=== PATIENT | female | born 2000 | race Caucasian/White ===

== ENCOUNTER → 2020-09-29 16:27 | Outpatient (CLI) | payer BC, OTHER, MEDICAID, SELFPAY ==
[2020-09-29 17:26] LABS: Add Manual Diff / Slide Review NO; Basophils Absolute Auto 0 /uL (0-100); Basophils Percent Auto 0.6 % (0-2); Eosinophils Absolute Auto 100 /uL (0-450); Eosinophils Percent Auto 2.1 % (2-4); Hematocrit 41.6 % (36-46); Hemoglobin 14.1 g/dL (12.0-16.0); Lymphocytes Absolute Auto 1500 /uL (1100-4500); Lymphocytes Percent Auto 28.4 % (25-40); Mean Corpuscular Hemoglobin 29.7 PG (26-34); Mean Corpuscular Volume 87.4 fL (80-100); Monocytes Absolute Auto 200 /uL (0-900); Monocytes Percent Auto 3.9 % (3-14); Neutrophils Absolute Auto 3500 /uL (1500-7000); Platelet Count 261 X10^3/uL (150-400); Red Blood Cell Count 4.76 X10^6/uL (4.0-5.2); Red Cell Distribution Width 13.1 % (11.6-14.8); White Blood Cell Count 5.3 X10^3/uL (4.5-11.0)
[2020-09-29 17:47] LABS: Alanine Aminotransferase 19 IU/L (<35); Albumin 4.8 g/dL (3.5-5.0); Albumin Globulin Ratio 1.7 (1.0-2.8); Alkaline Phosphatase 60 U/L (38-126); Aspartate Aminotransferase 27 IU/L (14-36); BUN Creatinine Ratio 16.1 (6-22); Bilirubin Total 0.4 mg/dL (0.2-1.3); Blood Urea Nitrogen 9 mg/dL (7-17); Calcium 9.7 mg/dL (8.4-10.2); Carbon Dioxide 26 mmol/L (22-32); Chloride 103 mmol/L (98-107); Estimated Glomerular Filt Rate > 60.0 mL/min (>60); Globulin 2.8 g/dL (1.7-4.1); Glucose 104 mg/dL (70-100); HEMOLYSIS < 15 (0-50); Potassium 3.9 mmol/L (3.4-5.1); Sodium 139 mmol/L (137-145); Total Protein 7.6 g/dL (6.3-8.2)
[2020-09-29 18:32] LABS: Pregnancy Test Urine Negative (Negative)
== END ==
PROVIDERS: PCP Registered Nurse; Referring Provider Registered Nurse; Visit Provider Registered Nurse
DX: Z30.40 Encounter for surveillance of contraceptives, unspecified (principal)
CPT/HCPCS: 36415; 80053; 81025; 85025

== ENCOUNTER 2024-11-30 05:03 | Emergency (ER) | payer BC, SELFPAY ==
[2024-11-30] VITALS (16 sets, daily range): BP systolic 109–143; BP diastolic 57–82; PULSE 70–106; RESP 15–26; TEMP 36.5; O2SAT 94–100; BMI 24.1
--- NOTE | 2024-11-30 05:50 | ED_ITS ---
HPI - Syncope <Chivo Gomez, DO - Last Filed: 11/30/24 06:06> General Chief Complaint: Syncope Stated Complaint: Syncope, head trauma, 13 wks grestation Time Seen by Provider: 11/30/24 05:25 Source: patient and family Mode of arrival: Ambulatory Limitations: no limitations History of Present Illness HPI narrative: 24-year-old 13wks CLINT June 03 got up at 4:00 a.m. this morning to get ready for work had a unwitnessed syncopal episode and notified her brought her in with concerns that she may have an acute emergency given that she is unable to recall any events leading up to her syncopal episode. He did recall saying she has had multiple multiple episodes of nausea vomiting yesterday and she did not have dinner last evening. She is on a vitamin B6 combination pill for nausea but she did not take any yesterday. No complications with the thus far and she denies any vaginal bleeding passing clots abdominal pain or back pain or urinary complaints. Patient denies chest pain, shortness of breath, leg pain or leg swelling. Other than what is stated 14 point review of system is negative. Related Data Home Medications ?Medication ?Instructions ?Recorded ?Confirmed levonorgestrel vaginal 09/23/20 Previous Rx's ?Medication ?Instructions ?Recorded norethindrone acetate 1.5 See Rx Instructions .Route 0 07/16/21 mg-ethinyl estradiol 30 mcg tablet .COMPLEX #63 tabs (Daniel) cefdinir 300 mg capsule 300 mg PO BID #10 caps 11/30 Allergies Allergy/AdvReac Type Severity Reaction Status Date / Time No Known Drug Allergies Allergy Unverified 11/30/24 05:18 Review of Systems <Chivo Gomez, DO - Last Filed: 11/30/24 06:06> Review of Systems ROS Unobtainable: All systems reviewed & are unremarkable except as noted in HPI and below Patient History <Chivo Gomez DO - Last Filed: 11/30/24 06:06> Medical History (Updated 11/30/24 @ 09:06 by Leonidas Tripathi MD) Encounter for IUD removal Contraceptive use IUD (intrauterine device) in place Anxiety Social History Smoking Status: Never smoker Smoking Status: Never smoker Exam <Chivo Gomez DO - Last Filed: 11/30/24 06:06> Narrative Exam Narrative: GENERAL: [24] year old patient appears stated age. Well-developed patient, in mild distress. HEAD: Atraumatic. Normocephalic. L facial contusion and L lip mild superficial laceration EYES: Pupils equal round and reactive. Extraocular motions intact. No scleral icterus. No injection or drainage. ENT: Nose without bleeding, purulent drainage. Throat without erythema, tonsillar hypertrophy or exudate. Airway patent. NECK: Trachea midline. Non tender CARDIOVASCULAR: Regular rate and rhythm without murmurs, gallops, or rubs. RESPIRATORY: Clear to auscultation. Breath sounds equal bilaterally. No wheezes, rales, or rhonchi. GASTROINTESTINAL: Abdomen soft, non-tender, nondistended. EXTREMITIES: No edema or joint tenderness. BACK: Nontender without deformity or crepitance. No flank tenderness. NEURO: AOx3. GCS 15 nonfocal neuro exam. Spontaneously moving all extremities with no difficulty. SKIN: No rash or erythema of visible areas Initial Vital Signs Initial Vital Signs: Vital Signs Temperature 97.7 F 11/30/24 05:18 Pulse Rate 96 H 11/30/24 05:18 Respiratory Rate 16 11/30/24 05:18 Blood Pressure 143/82 H 11/30/24 05:18 Pulse Oximetry 100 11/30/24 05:18 Oxygen Delivery Method Room Air 11/30/24 05:18 <Leonidas Tripathi MD - Last Filed: 11/30/24 12:06> Narrative Exam Narrative: GENERAL: [24] year old patient appears stated age. Well-developed patient, in mild distress. HEAD: Atraumatic. Normocephalic. L facial contusion and L lip mild superficial laceration, upper lateral lip 4 mm crossing the solomon border EYES: Pupils equal round and reactive. Extraocular motions intact. No scleral icterus. No injection or drainage. ENT: Nose without bleeding, purulent drainage. Throat without erythema, tonsillar hypertrophy or exudate. Airway patent. NECK: Trachea midline. Non tender CARDIOVASCULAR: Regular rate and rhythm without murmurs, gallops, or rubs. RESPIRATORY: Clear to auscultation. Breath sounds equal bilaterally. No wheezes, rales, or rhonchi. GASTROINTESTINAL: Abdomen soft, non-tender, nondistended. EXTREMITIES: No edema or joint tenderness. BACK: Nontender without deformity or crepitance. No flank tenderness. NEURO: AOx3. GCS 15 nonfocal neuro exam. Spontaneously moving all extremities with no difficulty. SKIN: No rash or erythema of visible areas Initial Vital Signs Initial Vital Signs: Vital Signs Temperature 97.7 F 11/30/24 05:18 Pulse Rate 96 H 11/30/24 05:18 Respiratory Rate 16 11/30/24 05:18 Blood Pressure 143/82 H 11/30/24 05:18 Pulse Oximetry 100 11/30/24 05:18 Oxygen Delivery Method Room Air 11/30/24 05:18 Procedures <Leonidas Tripathi MD - Last Filed: 11/30/24 12:06> Laceration Repair Laceration 1: Time of procedure: 09:05 Site: lip Side (If applicable): right Size (cm): 0.4 Description: linear Depth: simple, single layer Local Anesthetic: lidocaine 2% Amount of anesthesia used (mL): 1 Pre-repair: wound explored, irrigated extensively and deep structures intact Skin layer closed with: nylon Skin layer suture size: 6-0 Number of sutures: 1 Technique: simple, interrupted Course <Chivo Gomez DO - Last Filed: 11/30/24 06:06> Orders Ordered: ED Orders 11/30/24 05:55 Complete Blood Count AUTO DIFF Stat Comprehensive Metabolic Panel Stat 11/30/24 06:00 CT cervical spine wo con Stat CT facial bones wo con Stat CT head/brain wo con Stat US OB >= 14 weeks Fetus Stat 11/30/24 06:54 Urine Culture Stat Urine Microscopic Stat 11/30/24 08:05 EKG-12 Lead Stat Discontinued Medications Cefdinir (Cefdinir 300 Mg Capsule) 300 mg PO NOW ONE Stop: 11/30/24 08:07 Last Admin: 11/30/24 08:19 Dose: 300 mg Documented By: EB Sodium Chloride (Normal Saline 0.9%) 1,000 mls @ 1,000 mls/hr IV BOLUS ONE Stop: 11/30/24 09:05 Last Infusion: 11/30/24 09:27 Dose: Infused Documented By: Admin: 11/30/24 08:20 Dose: 1,000 mls/hr Documented By: EB Sodium Chloride (Normal Saline 0.9%) 1,000 mls @ 1,000 mls/hr IV BOLUS ONE Stop: 11/30/24 10:25 Last Infusion: 11/30/24 10:24 Dose: Infused Documented By: Admin: 11/30/24 09:31 Dose: 1,000 mls/hr Documented By: PHYLLIS Lidocaine HCl (Lidocaine 1% 20 Ml) 20 ml INJ INTRA-OP ONE Stop: 11/30/24 08:11 Last Admin: 11/30/24 08:21 Dose: 20 ml Documented By: PHYLLIS Vital Signs Vital signs: Vital Signs - 8 hr 11/30/24 05:18 11/30/24 07:00 11/30/24 07:01 Temperature 97.7 F Pulse Rate 96 H 72 Pulse Rate [Orthostatic Lying] Pulse Rate [Orthostatic Sitting] Pulse Rate [Orthostatic Standing] Respiratory Rate 16 Blood Pressure 143/82 H 118/71 Blood Pressure [Orthostatic Lying] Blood Pressure [Orthostatic Sitting] Blood Pressure [Orthostatic Standing] Pulse Oximetry 100 98 Oxygen Delivery Method Room Air 11/30/24 07:30 11/30/24 07:30 11/30/24 08:00 Temperature Pulse Rate 71 78 Pulse Rate [Orthostatic Lying] Pulse Rate [Orthostatic Sitting] Pulse Rate [Orthostatic Standing] Respiratory Rate 16 Blood Pressure 115/68 Blood Pressure [Orthostatic Lying] Blood Pressure [Orthostatic Sitting] Blood Pressure [Orthostatic Standing] Pulse Oximetry 99 100 Oxygen Delivery Method 11/30/24 08:00 11/30/24 08:11 11/30/24 08:11 Temperature Pulse Rate 75 Pulse Rate [Orthostatic Lying] Pulse Rate [Orthostatic Sitting] Pulse Rate [Orthostatic Standing] Respiratory Rate 22 Blood Pressure 119/73 113/60 Blood Pressure [Orthostatic Lying] Blood Pressure [Orthostatic Sitting] Blood Pressure [Orthostatic Standing] Pulse Oximetry 100 Oxygen Delivery Method Room Air 11/30/24 08:13 11/30/24 08:13 11/30/24 08:17 Temperature Pulse Rate 76 97 H Pulse Rate [Orthostatic Lying] Pulse Rate [Orthostatic Sitting] Pulse Rate [Orthostatic Standing] Respiratory Rate 26 H 21 Blood Pressure 125/70 Blood Pressure [Orthostatic Lying] Blood Pressure [Orthostatic Sitting] Blood Pressure [Orthostatic Standing] Pulse Oximetry 98 94 Oxygen Delivery Method 11/30/24 08:17 11/30/24 08:19 11/30/24 08:28 Temperature Pulse Rate 81 Pulse Rate [Orthostatic Lying] 74 Pulse Rate [Orthostatic Sitting] 73 Pulse Rate [Orthostatic Standing] 106 H Respiratory Rate Blood Pressure 118/62 Blood Pressure [Orthostatic Lying] 113/60 Blood Pressure [Orthostatic Sitting] 125/70 Blood Pressure [Orthostatic Standing] 118/62 Pulse Oximetry 98 Oxygen Delivery Method 11/30/24 08:28 11/30/24 08:30 11/30/24 08:30 Temperature Pulse Rate 80 Pulse Rate [Orthostatic Lying] Pulse Rate [Orthostatic Sitting] Pulse Rate [Orthostatic Standing] Respiratory Rate 18 Blood Pressure 113/65 119/57 L Blood Pressure [Orthostatic Lying] Blood Pressure [Orthostatic Sitting] Blood Pressure [Orthostatic Standing] Pulse Oximetry 99 Oxygen Delivery Method 11/30/24 09:00 11/30/24 09:01 11/30/24 09:01 Temperature Pulse Rate 77 70 Pulse Rate [Orthostatic Lying] Pulse Rate [Orthostatic Sitting] Pulse Rate [Orthostatic Standing] Respiratory Rate Blood Pressure 121/65 Blood Pressure [Orthostatic Lying] Blood Pressure [Orthostatic Sitting] Blood Pressure [Orthostatic Standing] Pulse Oximetry 100 100 Oxygen Delivery Method 11/30/24 09:30 11/30/24 09:30 11/30/24 10:00 Temperature Pulse Rate 73 83 Pulse Rate [Orthostatic Lying] Pulse Rate [Orthostatic Sitting] Pulse Rate [Orthostatic Standing] Respiratory Rate 17 15 Blood Pressure 123/59 L Blood Pressure [Orthostatic Lying] Blood Pressure [Orthostatic Sitting] Blood Pressure [Orthostatic Standing] Pulse Oximetry 100 99 Oxygen Delivery Method 11/30/24 10:13 11/30/24 10:13 Temperature Pulse Rate 93 H Pulse Rate [Orthostatic Lying] Pulse Rate [Orthostatic Sitting] Pulse Rate [Orthostatic Standing] Respiratory Rate Blood Pressure 109/60 Blood Pressure [Orthostatic Lying] Blood Pressure [Orthostatic Sitting] Blood Pressure [Orthostatic Standing] Pulse Oximetry Oxygen Delivery Method <Leonidas Tripathi MD - Last Filed: 11/30/24 12:06> Orders Ordered: ED Orders 11/30/24 05:55 Complete Blood Count AUTO DIFF Stat Comprehensive Metabolic Panel Stat 11/30/24 06:00 CT cervical spine wo con Stat CT facial bones wo con Stat CT head/brain wo con Stat US OB >= 14 weeks Fetus Stat 11/30/24 06:54 Urine Culture Stat Urine Microscopic Stat 11/30/24 08:05 EKG-12 Lead Stat Discontinued Medications Cefdinir (Cefdinir 300 Mg Capsule) 300 mg PO NOW ONE Stop: 11/30/24 08:07 Last Admin: 11/30/24 08:19 Dose: 300 mg Documented By: EB Sodium Chloride (Normal Saline 0.9%) 1,000 mls @ 1,000 mls/hr IV BOLUS ONE Stop: 11/30/24 09:05 Last Infusion: 11/30/24 09:27 Dose: Infused Documented By: Admin: 11/30/24 08:20 Dose: 1,000 mls/hr Documented By: EB Sodium Chloride (Normal Saline 0.9%) 1,000 mls @ 1,000 mls/hr IV BOLUS ONE Stop: 11/30/24 10:25 Last Infusion: 11/30/24 10:24 Dose: Infused Documented By: Admin: 11/30/24 09:31 Dose: 1,000 mls/hr Documented By: EB Lidocaine HCl (Lidocaine 1% 20 Ml) 20 ml INJ INTRA-OP ONE Stop: 11/30/24 08:11 Last Admin: 11/30/24 08:21 Dose: 20 ml Documented By: PHYLLIS Vital Signs Vital signs: Vital Signs - 8 hr 11/30/24 05:18 11/30/24 07:00 11/30/24 07:01 Temperature 97.7 F Pulse Rate 96 H 72 Pulse Rate [Orthostatic Lying] Pulse Rate [Orthostatic Sitting] Pulse Rate [Orthostatic Standing] Respiratory Rate 16 Blood Pressure 143/82 H 118/71 Blood Pressure [Orthostatic Lying] Blood Pressure [Orthostatic Sitting] Blood Pressure [Orthostatic Standing] Pulse Oximetry 100 98 Oxygen Delivery Method Room Air 11/30/24 07:30 11/30/24 07:30 11/30/24 08:00 Temperature Pulse Rate 71 78 Pulse Rate [Orthostatic Lying] Pulse Rate [Orthostatic Sitting] Pulse Rate [Orthostatic Standing] Respiratory Rate 16 Blood Pressure 115/68 Blood Pressure [Orthostatic Lying] Blood Pressure [Orthostatic Sitting] Blood Pressure [Orthostatic Standing] Pulse Oximetry 99 100 Oxygen Delivery Method 11/30/24 08:00 11/30/24 08:11 11/30/24 08:11 Temperature Pulse Rate 75 Pulse Rate [Orthostatic Lying] Pulse Rate [Orthostatic Sitting] Pulse Rate [Orthostatic Standing] Respiratory Rate 22 Blood Pressure 119/73 113/60 Blood Pressure [Orthostatic Lying] Blood Pressure [Orthostatic Sitting] Blood Pressure [Orthostatic Standing] Pulse Oximetry 100 Oxygen Delivery Method Room Air 11/30/24 08:13 11/30/24 08:13 11/30/24 08:17 Temperature Pulse Rate 76 97 H Pulse Rate [Orthostatic Lying] Pulse Rate [Orthostatic Sitting] Pulse Rate [Orthostatic Standing] Respiratory Rate 26 H 21 Blood Pressure 125/70 Blood Pressure [Orthostatic Lying] Blood Pressure [Orthostatic Sitting] Blood Pressure [Orthostatic Standing] Pulse Oximetry 98 94 Oxygen Delivery Method 11/30/24 08:17 11/30/24 08:19 11/30/24 08:28 Temperature Pulse Rate 81 Pulse Rate [Orthostatic Lying] 74 Pulse Rate [Orthostatic Sitting] 73 Pulse Rate [Orthostatic Standing] 106 H Respiratory Rate Blood Pressure 118/62 Blood Pressure [Orthostatic Lying] 113/60 Blood Pressure [Orthostatic Sitting] 125/70 Blood Pressure [Orthostatic Standing] 118/62 Pulse Oximetry 98 Oxygen Delivery Method 11/30/24 08:28 11/30/24 08:30 11/30/24 08:30 Temperature Pulse Rate 80 Pulse Rate [Orthostatic Lying] Pulse Rate [Orthostatic Sitting] Pulse Rate [Orthostatic Standing] Respiratory Rate 18 Blood Pressure 113/65 119/57 L Blood Pressure [Orthostatic Lying] Blood Pressure [Orthostatic Sitting] Blood Pressure [Orthostatic Standing] Pulse Oximetry 99 Oxygen Delivery Method 11/30/24 09:00 11/30/24 09:01 11/30/24 09:01 Temperature Pulse Rate 77 70 Pulse Rate [Orthostatic Lying] Pulse Rate [Orthostatic Sitting] Pulse Rate [Orthostatic Standing] Respiratory Rate Blood Pressure 121/65 Blood Pressure [Orthostatic Lying] Blood Pressure [Orthostatic Sitting] Blood Pressure [Orthostatic Standing] Pulse Oximetry 100 100 Oxygen Delivery Method 11/30/24 09:30 11/30/24 09:30 11/30/24 10:00 Temperature Pulse Rate 73 83 Pulse Rate [Orthostatic Lying] Pulse Rate [Orthostatic Sitting] Pulse Rate [Orthostatic Standing] Respiratory Rate 17 15 Blood Pressure 123/59 L Blood Pressure [Orthostatic Lying] Blood Pressure [Orthostatic Sitting] Blood Pressure [Orthostatic Standing] Pulse Oximetry 100 99 Oxygen Delivery Method 11/30/24 10:13 11/30/24 10:13 Temperature Pulse Rate 93 H Pulse Rate [Orthostatic Lying] Pulse Rate [Orthostatic Sitting] Pulse Rate [Orthostatic Standing] Respiratory Rate Blood Pressure 109/60 Blood Pressure [Orthostatic Lying] Blood Pressure [Orthostatic Sitting] Blood Pressure [Orthostatic Standing] Pulse Oximetry Oxygen Delivery Method MDM - Syncope <Chivo Gomez, DO - Last Filed: 11/30/24 06:06> Lab Data 11/30/24 05:55 11/30/24 05:55 Labs: Lab Results 11/30/24 11/30/24 11/30/24 Range/Units 05:53 05:55 06:54 WBC 7.9 (4.5-11.0) X10^3/uL RBC 4.53 (4.0-5.2) X10^6/uL Hgb 13.7 (12.0-16.0) g/dL Hct 38.8 (36-46) % MCV 85.7 (80-100) fL MCH 30.3 (26-34) PG MCHC 35.3 (30-36) % RDW 13.3 (11.6-14.8) % Plt Count 225 (150-400) X10^3/uL Neut % (Auto) 71.1 (50-75) % Lymph % (Auto) 21.3 L (25-40) % Nobles % (Auto) 5.8 (3-14) % Eos % (Auto) 1.4 L (2-4) % Baso % (Auto) 0.4 (0-2) % Neut # (Auto) 5600 (6097-5385) /uL Lymph # (Auto) 1700 (5219-4127) /uL Nobles # (Auto) 500 (0-900) /uL Eos # (Auto) 100 (0-450) /uL Baso # (Auto) 0 (0-100) /uL Sodium 134 L (137-145) mmol/L Potassium 3.5 (3.4-5.1) mmol/L Chloride 104 (98-107) mmol/L Carbon Dioxide 20 L (22-32) mmol/L BUN 7 (7-17) mg/dL Creatinine 0.48 L (0.52-1.04) mg/dL Estimated GFR > 60 (>60) mL/min BUN/Creatinine Ratio 14.6 (6-22) Glucose 90 (70-99) mg/dL POC Whole Bld Glucose 89 (70-99) mg/dL Calcium 9.2 (8.4-10.2) mg/dL Total Bilirubin 0.5 (0.2-1.3) mg/dL AST 24 (14-36) IU/L ALT 19 (<35) IU/L Alkaline Phosphatase 56 (38-126) U/L Total Protein 7.6 (6.3-8.2) g/dL Albumin 4.6 (3.5-5.0) g/dL Globulin 3.0 (1.7-4.1) g/dL Albumin/Globulin Ratio 1.5 (1.0-2.8) Urine RBC 0-1/hpf (0-5/HPF) Urine WBC 10-30/hpf H (0-5/HPF) Ur Squamous Epith Cells 10-30 /hpf H (0-5/HPF) Urine Bacteria Moderate (10-30) H (None) Ur Culture Indicated? Specimen cultured Vol Urine Centrifuged 10ml (spun) Urine Dip Bedside Urine Glucose Negative Bedside Urine Bilirubin - Negative Bedside Urine Ketone +++ 80 Urine Specific Michael 1.020 Bedside Urine Occult Blood - Negative Bedside Urine pH 6.0 Bedside Urine Protein +/- 15 Bedside Urine Urobilinogen 1+ 2mg Bedside Urine Nitrite - Negative Bedside Urine Leukocytes + 70 Esterase <Leonidas Tripathi MD - Last Filed: 11/30/24 12:06> Lab Data Labs: Lab Results 11/30/24 11/30/24 11/30/24 Range/Units 05:53 05:55 06:54 WBC 7.9 (4.5-11.0) X10^3/uL RBC 4.53 (4.0-5.2) X10^6/uL Hgb 13.7 (12.0-16.0) g/dL Hct 38.8 (36-46) % MCV 85.7 (80-100) fL MCH 30.3 (26-34) PG MCHC 35.3 (30-36) % RDW 13.3 (11.6-14.8) % Plt Count 225 (150-400) X10^3/uL Neut % (Auto) 71.1 (50-75) % Lymph % (Auto) 21.3 L (25-40) % Nobles % (Auto) 5.8 (3-14) % Eos % (Auto) 1.4 L (2-4) % Baso % (Auto) 0.4 (0-2) % Neut # (Auto) 5600 (2788-6550) /uL Lymph # (Auto) 1700 (7252-7087) /uL Nobles # (Auto) 500 (0-900) /uL Eos # (Auto) 100 (0-450) /uL Baso # (Auto) 0 (0-100) /uL Sodium 134 L (137-145) mmol/L Potassium 3.5 (3.4-5.1) mmol/L Chloride 104 (98-107) mmol/L Carbon Dioxide 20 L (22-32) mmol/L BUN 7 (7-17) mg/dL Creatinine 0.48 L (0.52-1.04) mg/dL Estimated GFR > 60 (>60) mL/min BUN/Creatinine Ratio 14.6 (6-22) Glucose 90 (70-99) mg/dL POC Whole Bld Glucose 89 (70-99) mg/dL Calcium 9.2 (8.4-10.2) mg/dL Total Bilirubin 0.5 (0.2-1.3) mg/dL AST 24 (14-36) IU/L ALT 19 (<35) IU/L Alkaline Phosphatase 56 (38-126) U/L Total Protein 7.6 (6.3-8.2) g/dL Albumin 4.6 (3.5-5.0) g/dL Globulin 3.0 (1.7-4.1) g/dL Albumin/Globulin Ratio 1.5 (1.0-2.8) Urine RBC 0-1/hpf (0-5/HPF) Urine WBC 10-30/hpf H (0-5/HPF) Ur Squamous Epith Cells 10-30 /hpf H (0-5/HPF) Urine Bacteria Moderate (10-30) H (None) Ur Culture Indicated? Specimen cultured Vol Urine Centrifuged 10ml (spun) Urine Dip Bedside Urine Glucose Negative Bedside Urine Bilirubin - Negative Bedside Urine Ketone +++ 80 Urine Specific Michael 1.020 Bedside Urine Occult Blood - Negative Bedside Urine pH 6.0 Bedside Urine Protein +/- 15 Bedside Urine Urobilinogen 1+ 2mg Bedside Urine Nitrite - Negative Bedside Urine Leukocytes + [address] scan - head: Radiologist's Impression: [address] [address] [address] Scan Report Signed Patient: Amrita Smith MR#: [id number] : 2000 Acct:[id number] Age/Sex: 24 / F Date of Service: 11/30/24 Loc: ED Accession Number: [id number] Procedure: CT head/brain wo con Ordering Provider: Chivo Gomez D.O. PROCEDURE: CT HEAD/BRAIN WO CON INDICATIONS: syncope TECHNIQUE: Noncontrast 4.5 mm thick angled axial sections acquired from the foramen magnum to the vertex, with coronal and sagittal reformats. For radiation dose reduction, the following was used: automated exposure control, adjustment of mA and/or kV according to patient size. COMPARISON: None. FINDINGS: Image quality: Diagnostic. CSF spaces: Basal cisterns are patent. No extra-axial fluid collections. Ventricles are normal in size and shape. Brain: No midline shift. No intracranial mass effect or hemorrhage. Matthews- white matter interface is normal. Skull and face: Calvarium and visualized facial bones are intact, without suspicious lesions. Sinuses: Visualized sinuses and mastoids are clear. IMPRESSION: No acute intracranial pathology. Approved by: Jean Paul Gray M.D. on 11/30/2024 at 8:10 CT - cervical spine: Radiologist's Impression: [address] [address] [address] Scan Report Signed Patient: Amrita Smith MR#: [id number] : 2000 Acct:[id number] Age/Sex: 24 / F Date of Service: 11/30/24 Loc: ED Accession Number: [id number] Procedure: CT cervical spine wo con Ordering Provider: Chivo Gomez D.O. PROCEDURE: CT CERVICAL SPINE WO CON INDICATIONS: syncope TECHNIQUE: Noncontrast 3 mm thick sections acquired from the skull base to the T4 level. Sagittal and coronal reformats were then constructed. For radiation dose reduction, the following was used: automated exposure control, adjustment of mA and/or kV according to patient size. COMPARISON: None. FINDINGS: Image quality: Excellent. Bones: No acute fractures or dislocations. Visualized superior ribs are intact. Soft tissues: Prevertebral soft tissues are normal in thickness. No paravertebral hematomas. No apical pneumothoraces. IMPRESSION: No acute displaced fracture or traumatic subluxation. There is no significant discrepancy when compared to the overnight preliminary report. Approved by: Jean Paul Gray M.D. on 11/30/2024 at 8:16 CT face: Radiologist's Impression: [address] [address] [address] Scan Report Signed Patient: Amrita Smith MR#: [id number] : 2000 Acct:[id number] Age/Sex: 24 / F Date of Service: 11/30/24 Loc: ED Accession Number: [id number] Procedure: CT facial bones wo con Ordering Provider: Chivo Gomez D.O. PROCEDURE: CT FACIAL BONES WO CON INDICATIONS: syncope TECHNIQUE: Noncontrast 2.5 mm thick axial images acquired from the mandible through the frontal sinuses, with coronal and sagittal reformatting. For radiation dose reduction, the following was used: automated exposure control, adjustment of mA and/or kV according to patient size. COMPARISON: None. FINDINGS: Image quality: Excellent. Bones and teeth: Orbital mccoy are intact. Sinus mccoy show no fracture or deformity. Nasal bones and septum are intact. Visualized portions of the mandible demonstrate no fractures or subluxation. Zygomatic arches are intact. Pterygoid plates are intact. Visualized portions of the skull base and auditory canals are intact. Sinuses: Paranasal sinuses are aerated, without fluid levels, mucosal thickening, or mucoceles. Mastoid air cells are aerated. Soft tissues: Focal subcutaneous edema is seen overlying the left zygoma. No enlarged lymph nodes. No soft tissue lacerations or debris. Vascular: Visualized vascular structures appear normal in the absence of contrast. Bony vascular foramina and canals are intact. IMPRESSION: No acute facial fracture. Mild left facial subcutaneous edema. There is no significant discrepancy when compared to the overnight preliminary report. Approved by: Jean Paul Gray M.D. on 11/30/2024 at 8:14 ultrasound: Radiologist's Impression: [address] [address] Ultrasound Report Signed Patient: Amrita Smith MR#: [id number] : 2000 Acct:[id number] Age/Sex: 24 / F Date of Service: 11/30/24 Loc: ED Accession Number: [id number] Procedure: US OB >= 14 weeks Fetus Ordering Provider: Chivo Gomez D.O. PROCEDURE: US OB >= 14 WEEKS FETUS INDICATIONS: syncope OUTSIDE/PRIOR DATING DATA: Last menstrual period (LMP): 08/27/2024. LMP-based estimated date of delivery (CLINT): 06/03/2025. TECHNIQUE: Real-time scanning was performed of the fetus, with image documentation and biometric measurements. Endovaginal scanning: Not performed COMPARISON: None. FINDINGS: General: A single living intrauterine gestation is present. Presentation: transverse, maternal right. Placenta: Placental position is anterior, without previa. Amniotic fluid index: Subjectively normal. heart rate: 147 beats per minute. Maternal cervical canal: 2.7 cm long. Normal lower limit is 2.5 cm. biometrics: Biparietal diameter: 2.5 cm, 14 weeks 2 days Head circumference: 9.8 cm, 14 weeks 4 days Abdominal circumference: 8.3 cm, 14 weeks 4 days Femur length: 1.2 cm, 13 weeks 3 days Clinically estimated gestational age: 13 weeks 4 days Composite gestational age from present scan: 14 weeks 2 days IMPRESSION: 1. [place] living intrauterine at 14 weeks 2 days based on today's ultrasound. 2. Subjectively normal amniotic fluid. Recommend anatomic survey at 20 weeks. We strive to produce accurate, complete, and clear reports of imaging services. To assist us in improving patient care, this report was composed using standard report templates and voice recognition software. Therefore, it may contain abnormal punctuation, insertions and/or omissions. Occasional wrong-word or sound-alike substitutions may occur. Though we review the report and make efforts to correct it, we do recommend that the report be read carefully in proper context to recognize any text inaccuracies. Dictated by: Alexi Purvis M.D. on 11/30/2024 at 8:09 Approved by: Alexi Purvis M.D. on 11/30/2024 at 8:17 [facility] Narrative Medical decision making narrative: 24-year-old 13wks CLINT June [birth year] got up at 4:00 a.m. this morning to get ready for work had a unwitnessed syncopal episode and notified her brought her in with concerns that she may have an acute emergency given that she is unable to recall any events leading up to her syncopal episode. He did recall saying she has had multiple multiple episodes of nausea vomiting yesterday and she did not have dinner last evening. She is on a vitamin B6 combination pill for nausea but she did not take any yesterday. No complications with the thus far and she denies any vaginal bleeding passing clots abdominal pain or back pain or urinary complaints. Patient denies chest pain, shortness of breath, leg pain or leg swelling. Other than what is stated 14 point review of system is negative. MDM After history and exam, CT head CT face CT cervical spine ultrasound CBC CMP urinalysis Differential considered: Includes but not limited to facial fracture vasovagal syncope seizure dehydration UTI Medical records reviewed: No recent visit for this complaint Lab Test results independently reviewed as above. Pertinent findings: WBC 7.9 hemoglobin 13.7 sodium 134 potassium 3.5 bicarb 20 BUN 7 creatinine 0.48 GFR greater than 60 glucose 90 urinalysis WBC 10 30 positive bacteria, positive leukocytes negative nitrite positive ketones Imaging studies independently reviewed: CT cervical spine no acute finding. CT face no fracture CT head no acute finding ultrasound no acute finding EKG normal sinus rhythm rate 86 Consultations: None indicated at this time Re-evaluations: 8:58 a.m.. Reviewed with patient and family likely vasovagal dehydration UTI causing her syncope. She has had vomiting recently. Urinalysis does show signs of dehydration. IV fluids have been started. Reviewed with patient and family results, imaging studies reassuring. Return precautions reviewed. Wound care instructions provided. Hydration instructions provided. They desire discharge home. Discussion: Appropriate for discharge home. Exam is reassuring. IV fluids have been provided. Patient tolerated wound repair very well. Return precautions reviewed. They desire discharge home. Lip repair was done using suture at the vermilion border. Diagnosis: Vasovagal syncope, lip laceration, dehydration, UTI 7:[address] Tripathi: Sign-out from Dr. Gomez, patient likely had vasovagal syncope. Has had nausea and vomiting. Laboratory studies are pending CT images and ultrasound pending. Will need suture repair of the lip. Risks and benefits were discussed with patient and family for CT imaging by Dr. Gomez Discharge Plan Departure Patient Disposition: Home Clinical Impression: Vasovagal syncope, Acute dehydration, Acute UTI Complicated laceration of lip Qualifiers: Encounter type: initial encounter Qualified Code(s): S01.511A - Laceration without foreign body of lip, initial encounter Instructions: DI for Syncope in Adults (Fainting), DI for Dehydration -- Adult, DI for Laceration Repair -- Simple, DI for Urinary Tract Infection (UTI) Activity Restrictions/Additional Instructions: You are being treated for dehydration, urinary tract infection. Antibiotics have been prescribed for you and started. Keep well hydrated. Return here or go to urgent care in 7 days to have stitches removed from your lip. Please continue soft foods until the stitch has been removed. See your OBGYN doctor in a week for re-evaluation. Your imaging studies have been reassuring. You were given IV fluids while you are here. Return if worse if any questions or concerns Prescriptions: New cefdinir 300 mg capsule 300 mg PO BID Qty: 10 0RF No Action norethindrone ac-eth estradiol [Daniel 1.5 (21)] 1.5-30 mg-mcg tablet See Rx Instructions .ROUTE .COMPLEX Qty: 63 0RF Dose Instruction: take 1 tablet by mouth once daily Rx Instructions: take 1 tablet by mouth once daily levonorgestrel vaginal Stand Alone Forms: Patient Portal/API, Work Release Note
[2024-11-30 05:59] LABS: Add Manual Diff / Slide Review NO; Hematocrit 38.8 % (36-46); Hemoglobin 13.7 g/dL (12.0-16.0); Lymphocytes Absolute Auto 1700 /uL (1100-4500); Mean Corpuscular HGB Conc 35.3 % (30-36); Mean Corpuscular Hemoglobin 30.3 PG (26-34); Mean Corpuscular Volume 85.7 fL (80-100); Platelet Count 225 X10^3/uL (150-400)
--- NOTE | 2024-11-30 06:00 | DI.CT.S_ITS ---
PROCEDURE: CT CERVICAL SPINE WO CON INDICATIONS: syncope TECHNIQUE: Noncontrast 3 mm thick sections acquired from the skull base to the T4 level. Sagittal and coronal reformats were then constructed. For radiation dose reduction, the following was used: automated exposure control, adjustment of mA and/or kV according to patient size. COMPARISON: None. FINDINGS: Image quality: Excellent. Bones: No acute fractures or dislocations. Visualized superior ribs are intact. Soft tissues: Prevertebral soft tissues are normal in thickness. No paravertebral hematomas. No apical pneumothoraces. IMPRESSION: No acute displaced fracture or traumatic subluxation. There is no significant discrepancy when compared to the overnight preliminary report. Approved by: Jean Paul Gray M.D. on 11/30/2024 at 8:16
--- NOTE | 2024-11-30 06:00 | DI.CT.S_ITS ---
PROCEDURE: CT HEAD/BRAIN WO CON INDICATIONS: syncope TECHNIQUE: Noncontrast 4.5 mm thick angled axial sections acquired from the foramen magnum to the vertex, with coronal and sagittal reformats. For radiation dose reduction, the following was used: automated exposure control, adjustment of mA and/or kV according to patient size. COMPARISON: None. FINDINGS: Image quality: Diagnostic. CSF spaces: Basal cisterns are patent. No extra-axial fluid collections. Ventricles are normal in size and shape. Brain: No midline shift. No intracranial mass effect or hemorrhage. Matthews- white matter interface is normal. Skull and face: Calvarium and visualized facial bones are intact, without suspicious lesions. Sinuses: Visualized sinuses and mastoids are clear. IMPRESSION: No acute intracranial pathology. Approved by: Jean Paul Gray M.D. on 11/30/2024 at 8:10
--- NOTE | 2024-11-30 06:00 | DI.US.S_ITS ---
PROCEDURE: US OB >= 14 WEEKS FETUS INDICATIONS: syncope OUTSIDE/PRIOR DATING DATA: Last menstrual period (LMP): 08/27/2024. LMP-based estimated date of delivery (CLINT): 06/03/2025. TECHNIQUE: Real-time scanning was performed of the fetus, with image documentation and biometric measurements. Endovaginal scanning: Not performed COMPARISON: None. FINDINGS: General: A single living intrauterine gestation is present. Presentation: transverse, maternal right. Placenta: Placental position is anterior, without previa. Amniotic fluid index: Subjectively normal. heart rate: 147 beats per minute. Maternal cervical canal: 2.7 cm long. Normal lower limit is 2.5 cm. biometrics: Biparietal diameter: 2.5 cm, 14 weeks 2 days Head circumference: 9.8 cm, 14 weeks 4 days Abdominal circumference: 8.3 cm, 14 weeks 4 days Femur length: 1.2 cm, 13 weeks 3 days Clinically estimated gestational age: 13 weeks 4 days Composite gestational age from present scan: 14 weeks 2 days IMPRESSION: 1. [place] living intrauterine at 14 weeks 2 days based on today's ultrasound. 2. Subjectively normal amniotic fluid. Recommend anatomic survey at 20 weeks. We strive to produce accurate, complete, and clear reports of imaging services. To assist us in improving patient care, this report was composed using standard report templates and voice recognition software. Therefore, it may contain abnormal punctuation, insertions and/or omissions. Occasional wrong-word or sound-alike substitutions may occur. Though we review the report and make efforts to correct it, we do recommend that the report be read carefully in proper context to recognize any text inaccuracies. Dictated by: Alexi Purvis M.D. on 11/30/2024 at 8:09 Approved by: Alexi Purvis M.D. on 11/30/2024 at 8:17
--- NOTE | 2024-11-30 06:00 | DI.CT.S_ITS ---
PROCEDURE: CT FACIAL BONES WO CON INDICATIONS: syncope TECHNIQUE: Noncontrast 2.5 mm thick axial images acquired from the mandible through the frontal sinuses, with coronal and sagittal reformatting. For radiation dose reduction, the following was used: automated exposure control, adjustment of mA and/or kV according to patient size. COMPARISON: None. FINDINGS: Image quality: Excellent. Bones and teeth: Orbital mccoy are intact. Sinus mccoy show no fracture or deformity. Nasal bones and septum are intact. Visualized portions of the mandible demonstrate no fractures or subluxation. Zygomatic arches are intact. Pterygoid plates are intact. Visualized portions of the skull base and auditory canals are intact. Sinuses: Paranasal sinuses are aerated, without fluid levels, mucosal thickening, or mucoceles. Mastoid air cells are aerated. Soft tissues: Focal subcutaneous edema is seen overlying the left zygoma. No enlarged lymph nodes. No soft tissue lacerations or debris. Vascular: Visualized vascular structures appear normal in the absence of contrast. Bony vascular foramina and canals are intact. IMPRESSION: No acute facial fracture. Mild left facial subcutaneous edema. There is no significant discrepancy when compared to the overnight preliminary report. Approved by: Jean Paul Gray M.D. on 11/30/2024 at 8:14
[2024-11-30 06:09] LABS: Alanine Aminotransferase 19 IU/L (<35); Albumin 4.6 g/dL (3.5-5.0); Albumin Globulin Ratio 1.5 (1.0-2.8); Alkaline Phosphatase 56 U/L (38-126); Blood Urea Nitrogen 7 mg/dL (7-17); Calcium 9.2 mg/dL (8.4-10.2); Carbon Dioxide 20 mmol/L (22-32); Chloride 104 mmol/L (98-107); Estimated Glomerular Filt Rate > 60 mL/min (>60); Globulin 3.0 g/dL (1.7-4.1); Glucose 90 mg/dL (70-99); HEMOLYSIS < 15 (0-50); Potassium 3.5 mmol/L (3.4-5.1); Sodium 134 mmol/L (137-145); Total Protein 7.6 g/dL (6.3-8.2)
[2024-11-30 07:55] LABS: Culture Indicated Urine Specimen Cultured
[2024-11-30] MEDS: CEFDINIR 300 MG CAPSULE PO (08:19)
[2024-11-30] MEDS: SODIUM CHLORIDE 0.9% 1,000 ML 1000 ML IV ×2 (08:20→09:31)
[2024-11-30] MEDS: LIDOCAINE 1% 20 ML INJ (08:21)
--- NOTE | 2024-11-30 08:26 | EKG_ITS ---
[place] [address] [place] [id number] Test Date: 2024-11-30 Pat Name: Amrita Smith Department: [facility] Room: Gender: Female Paper Sorter And Counter: NIKKI : 2000 Requested By: Order Number: [id number] Reading MD: Chivo Orta MD Measurements Intervals United Rate: 86 P: 30 NV: 120 QRS: 59 QRSD: 88 T: -13 QT: 374 QTc: 447 Interpretive Statements Normal sinus rhythm with sinus arrhythmia T wave abnormality, consider inferior ischemia T wave abnormality, consider anterior ischemia NO PRIOR TRACING Electronically Signed On 11-30-2024 10:06:11 PDT by Chivo Orta MD
--- NOTE | 2024-11-30 09:05 | PC.NURSE ---
Pt removed from IV fluids by provider and ambulated independently to restroom. Returned to room and fluids continued at 0900. Pt provided with a warm blanket and denied any further needs at this time.
--- NOTE | 2024-11-30 09:36 | PC.NURSE ---
This RN hung a second bag of NS per MD order at this time. Pt denied any pain or discomfort as infusion began and IV site observed to be intact and infusing appropriately. No redness or swelling observed. Pt denied any further needs at this time.
--- NOTE | 2024-11-30 09:50 | PC.NURSE ---
This RN answered patient call light. Patient requested to use restroom. Patient has been able to ambulate independently. Patient denies dizziness or lightheadedness. Patient has shoes on to ambulate. Patient significant other accompanies patient to restroom. Patient not requiring assistance to ambulate.
--- NOTE | 2024-11-30 10:04 | PC.NURSE ---
Pt fluids restarted by this RN after pt ambulated to restroom. Pt also replaced on VS monitor and threat monitoring analyst at this time. Pt denied any pain at IV site as infusion began. No redness or swelling observed. Pt denied any further needs at this time.
== END 2024-11-30 10:25 | disposition home or self-care (01) ==
PROVIDERS: Family Medicine; Emergency Provider Emergency Medicine
DX: O26.891 Other specified pregnancy related conditions, first trimester (principal); R55 Syncope and collapse; S09.90XA Unspecified injury of head, initial encounter; E86.0 Dehydration; N39.0 Urinary tract infection, site not specified; S01.511A Laceration without foreign body of lip, initial encounter; Z3A.13 13 weeks gestation of pregnancy
CPT/HCPCS: 12011; 36415; 70450; 70486; 72125; 76811; 80053; 81003; 81015; 82962; 85025; 87086; 93005; 93010; 96360; 96361; 99284

== ENCOUNTER → 2025-01-14 13:24 | Outpatient (CLI) | payer BC, SELFPAY ==
--- NOTE | 2025-01-14 13:25 | DI.US.S_ITS ---
PROCEDURE: US OB >= 14 WEEKS FETUS
== END ==
LOC: US 13:24
PROVIDERS: Referring Provider Advanced Practice Midwife; Visit Provider Advanced Practice Midwife
DX: Z34.92 Encounter for supervision of normal pregnancy, unspecified, second trimester (principal); Z3A.20 20 weeks gestation of pregnancy
CPT/HCPCS: 76811